=== PATIENT | female | born 1980 | race Caucasian/White ===

== ENCOUNTER 2016-12-12 18:13 | Outpatient (CLI) | payer MEDICAID ==
[~2016-12-12] VITALS: Ht 152.4 cm; Wt 92.3 kg
[2016-12-12 18:21] VITALS: Ht 152.4 cm; Wt 92.3 kg
[2016-12-12 18:37] VITALS: BP 121/78; PULSE 102; RESP 20
--- NOTE | 2016-12-12 21:09 | RADRPT ---
PROCEDURE: US OB. CLINICAL INDICATION: Contractions TECHNIQUE: Multiple sonographic images of the pelvis were obtained. The images were reviewed on a PACS workstation. COMPARISON: No prior studies are available for comparison. FINDINGS: The cervix is closed . There is a single viable intrauterine gestation. Cardiac activity is present with 144 beats per min [place]. There is a cephalic presentation. Measurements were made in order to determine age. The results are as follows: BPD =8.84 cm HC =31.28 cm AC =29.86 cm FL =6.59 cm. Estimated gestational age of approximately 34 weeks 5-day The estimated date of delivery is 01/18/2017. The EFW = 2368 +/- 355 g . The placenta is anterior, grade 1. There is no evidence for an abruption or placenta previa. There are no adnexal masses.. IMPRESSION: 1. Single viable intrauterine gestation of approximately 34 weeks 5 days'. The estimated date of de livery is 01/18/2017 . 2. The EFW = 2368 +/- 355 g . RPTAT: [facility] .Gianna Grajeda MD, MD Date Time Electronically viewed and signed by .Gianna Grajeda MD, MD on 12/12/2016 21:08 .M/
--- NOTE | 2016-12-12 21:12 | RADRPT ---
PROCEDURE: US OB. CLINICAL INDICATION: Abnormal strip TECHNIQUE: Pelvic ultrasound performed for biophysical profile. COMPARISON: None FINDINGS: Single intrauterine gestation present with heart rate at 144 beats per minute. Presentation is ceph alic. Placenta is anterior, grade I. Amniotic fluid volume is within normal limits, with REBEKAH = 2 1.72 cm. IMPRESSION: Single gestation in cephalic presentation REBEKAH 21.72 cm RPTAT: [facility] .Gianna Grajeda MD, Date Time Electronically viewed and signed by .Gianna Grajeda MD, on 12/12/2016 21:12 .M/
[2016-12-12] MEDS ORDERED: TERBUTALINE 1 MG/ML INJ SC ONE ×2 (21:30→23:00)
[2016-12-12] MEDS ORDERED: LACTATED RINGER'S 1,000 ML IV ONE (21:30)
[2016-12-12] MEDS ORDERED: TERBUTALINE 1 ML ONE (21:32)
[2016-12-13] MEDS ORDERED: NIFEdipine 10 MG CAP ONE (00:44)
--- NOTE | 2016-12-13 00:58 | QN ---
Documentation Comment Laborist ER panel pt 36 y.o. with an IUP at 34w 3d c/o lower abdominal pain. Pt was found to be josé miguel q 5-10 minutes.No bleeding or leaking. Pt had one prior section. PMHx: none. PSHx: x 1. NKDA. T=98.3 BP 121/78 NST: baseline 140-150 bpm with accels to 165 bpm. No decels. UC's were q 5-10 minutes. EFW 2368 grams. VTX. REBEKAH 21.7. Pt received IV hydration and terbutaline x 2 with almost complete resolution of contractions. Gave her 20 mg of Procardia prior to d/c, as well. A: IUP at 34 w 3d. False labor. P:D/C home. F/U with her doctor 12/15 as scheduled. Maintain p.o. hydration. SIGRID URRUTIA MD Dec 13, 2016 00:58
[2016-12-13] MEDS ORDERED: NIFEdipine 10 MG CAP PO ONE (01:00)
== END 2016-12-13 01:00 | disposition home or self-care (01) ==
LOC: OBT 18:13 → L-D 18:14 → OBT 12-13 01:00
PROVIDERS: ATTEND Obstetrics & Gynecology
DX: O47.03 False labor before 37 completed weeks of gestation, third trimester (principal); Z3A.34 34 weeks gestation of pregnancy
CPT/HCPCS: 36415; 76815; 76818; 96360; 96361; 96372; J3105; J7120; Z7500; Z7610; G0463